=== PATIENT | male | born 1965 | race Caucasian/White ===

== ENCOUNTER 2020-01-10 07:04 | Emergency (ER) | payer MEDICAID ==
[~2020-01-10] VITALS: Ht 172.7 cm; Wt 73.4 kg
[2020-01-10 07:06] VITALS: BP 124/87
--- NOTE | 2020-01-10 07:53 | NUR ---
BOTTOM POLISHER: CALLED NO ANSWER
--- NOTE | 2020-01-10 08:03 | NUR ---
CLINICAL PROVIDER TRAINER: PT TO ROOM FROM [facility]
[2020-01-10] MEDS ORDERED: KETOROLAC 30 MG/1 ML ONE (08:22)
[2020-01-10] MEDS ORDERED: KETOROLAC 30 MG/1 ML IM ONE (08:30)
--- NOTE | 2020-01-10 08:49 | NUR ---
REPORT FROM JERRY HERNANDEZ.
== END 2020-01-10 09:23 | disposition home or self-care (01) ==
LOC: ED 08:24
DX: K08.89 Other specified disorders of teeth and supporting structures (principal)
CPT/HCPCS: 96372; 99283; J1885

== ENCOUNTER 2020-07-26 06:50 | Emergency (ER) | payer MEDICAID ==
[~2020-07-26] VITALS: Ht 172.7 cm; Wt 69.0 kg
[2020-07-26 07:05] VITALS: BP 114/68
== END 2020-07-26 07:30 | disposition home or self-care (01) ==
LOC: ED 07:20
DX: K08.89 Other specified disorders of teeth and supporting structures (principal)
CPT/HCPCS: 99283; 99285

== ENCOUNTER 2020-12-07 14:08 | Emergency (ER) | payer MEDICAID ==
[~2020-12-07] VITALS: Ht 172.7 cm; Wt 72.1 kg
[2020-12-07 14:23] VITALS: BP 121/77
--- NOTE | 2020-12-07 14:26 | NUR ---
[facility] DONE ON PT IN TRIAGE
--- NOTE | 2020-12-07 15:12 | NUR ---
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
[2020-12-07] MEDS ORDERED: PROPARACAINE OPHTH 0.5%, 15ML ONE (15:57)
[2020-12-07] MEDS ORDERED: FLUORESCEIN OPHTHALMIC 1 MG STRIP ONE (15:57)
[2020-12-07] MEDS ORDERED: IBUPROFEN 200 MG TABLET ONE (16:24)
[2020-12-07] MEDS ORDERED: IBUPROFEN 200 MG TABLET PO ONE (16:30)
--- NOTE | 2020-12-07 17:07 | NUR ---
PT REC'VD DISCHARGE INSTRUCTIONS AND EDUCATION. PT HAD NO FURHTER QUESTIONS. PT HAD NO FURTHER QUESTIONS. PT AMBULATED TO DC AREA, STEADY GAIT.
== END 2020-12-07 17:10 | disposition home or self-care (01) ==
LOC: ED 16:52
DX: H00.012 Hordeolum externum right lower eyelid (principal); F17.200 Nicotine dependence, unspecified, uncomplicated
CPT/HCPCS: 99283

== ENCOUNTER 2021-02-17 00:04 | Emergency (ER) | payer MEDICAID ==
--- NOTE | 2021-02-17 00:13 | NUR ---
PT WANTED TO LEAVE AFTER GETTING INTO TRIAGE AND SAID HE IS FINE NOW.
== END 2021-02-17 00:15 | disposition left against medical advice (07) ==
LOC: ED 00:06
DX: F41.9 Anxiety disorder, unspecified (principal); Z53.21 Procedure and treatment not carried out due to patient leaving prior to being seen by health care provider

== ENCOUNTER 2021-03-08 14:01 | Emergency (ER) | payer MEDICAID ==
[~2021-03-08] VITALS: Ht 172.7 cm; Wt 70.4 kg
[2021-03-08 14:13] VITALS: BP 110/75
--- NOTE | 2021-03-08 14:52 | NUR ---
DC EDUCATION PROVIDED, PT DEMONSTRATES UNDERSTANDING. PT AMBULATED STEADILY TO DC WITH RN
== END 2021-03-08 14:55 | disposition home or self-care (01) ==
LOC: ED 14:30
DX: K02.9 Dental caries, unspecified (principal); F17.210 Nicotine dependence, cigarettes, uncomplicated
CPT/HCPCS: 99283

== ENCOUNTER 2021-03-13 10:04 | Emergency (ER) | payer MEDICAID ==
[~2021-03-13] VITALS: Ht 172.7 cm; Wt 71.7 kg
[2021-03-13 10:35] LABS: BASOPHILS % (AUTO) 1 % (0-1); EOSINOPHILS % (AUTO) 2 % (1-7); LYMPHOCYTES % (AUTO) 18 % (22-44); MEAN CORPUSCULAR HEMOGLOBIN 31.2 pg (27.5-34.5); MEAN CORPUSCULAR HGB CONC 33.8 g/dL (33.2-36.2); MEAN PLATELET VOLUME 7.1 fL (7.4-10.4); MONOCYTES % (AUTO) 11 % (2-9); NEUTROPHILS % (AUTO) 68 % (42-75); PLATELET COUNT 297 x10^3/uL (130-400); RED BLOOD COUNT 4.66 x10^6/uL (4.38-5.82); RED CELL DISTRIBUTION WIDTH 13.9 % (9.4-14.8)
[2021-03-13 10:37] LABS: MD NO
[2021-03-13 10:45] LABS: ANION GAP 6 mmol/L (5-15); CALCIUM 8.8 mg/dL (8.5-10.1); CHLORIDE 100 mmol/L (98-107); CREATININE 0.84 mg/dL (0.7-1.3)
[2021-03-13 11:03] VITALS: BP 116/67
--- NOTE | 2021-03-13 11:13 | NUR ---
PT REC'VD DISCHARGE INSTRUCTIONS AND EDUCATION. PT PROVIDED HANDOUTS WITH DETOX AND COUNSELING RESOURCES. PT AMBULATED TO DC AREA, STEADY GAIT.
== END 2021-03-13 11:34 | disposition home or self-care (01) ==
LOC: ED 10:37
DX: F15.10 Other stimulant abuse, uncomplicated (principal); E86.0 Dehydration
CPT/HCPCS: 36415; 80048; 85025; 99283

== ENCOUNTER 2021-04-27 17:44 | Emergency (ER) | payer MEDICAID ==
[~2021-04-27] VITALS: Ht 172.7 cm; Wt 70.0 kg
--- NOTE | 2021-04-27 17:45 | NUR ---
PT BIB [facility], HERE FOR DETOX. PT REPORTED LAST USE OF ETOH AND METH WAS LAST NIGHT AT APPROXIMATELY MIDNIGHT. WENT TO [place], BUT HAD DIFFCULTY W/ PAPERWORK AND LEFT BUT COULDN'T WALK TOO FAR. PER [facility] HE HAD MUSCLE WEAKNESS, DIFFICULTY W/ VISION. HE ALSO REPORTED TYLENOL FOR PAIN LAST NIGHT. 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 PT CURRENTLY REPORTS MANZANARES, NO SWEATING OR TREMOR OBSERVED, DENIES HALLUCINATIONS. VSS.
[2021-04-27] MEDS ORDERED: SODIUM CHLORIDE 0.9% 1,000ML IVBOLUS ONE (18:00)
[2021-04-27] MEDS ORDERED: ONDANSETRON 2MG/ML, 2ML IVPush ONE (18:00)
[2021-04-27] MEDS ORDERED: ONDANSETRON 2MG/ML, 2ML ONE (18:16)
[2021-04-27 18:31] LABS: ALANINE AMINOTRANSFERASE 53 U/L (12-78); ALBUMIN 3.7 g/dL (3.4-5.0); ANION GAP 10 mmol/L (5-15); CALCIUM 8.6 mg/dL (8.5-10.1); CHLORIDE 109 mmol/L (98-107); CREATININE 0.83 mg/dL (0.7-1.3)
[2021-04-27 18:33] LABS: BASOPHILS % (AUTO) 1 % (0-1); EOSINOPHILS % (AUTO) 3 % (1-7); LYMPHOCYTES % (AUTO) 21 % (22-44); MEAN CORPUSCULAR HEMOGLOBIN 31.4 pg (27.5-34.5); MEAN CORPUSCULAR HGB CONC 34.1 g/dL (33.2-36.2); MEAN PLATELET VOLUME 7.5 fL (7.4-10.4); MONOCYTES % (AUTO) 12 % (2-9); NEUTROPHILS % (AUTO) 64 % (42-75); PLATELET COUNT 291 x10^3/uL (130-400); RED BLOOD COUNT 4.49 x10^6/uL (4.38-5.82)
[2021-04-27 18:34] LABS: ALKALINE PHOSPHATASE 101 U/L (45-117); BILIRUBIN,TOTAL 0.7 mg/dL (0.2-1.0); SALICYLATE LEVEL < 1.7 mg/dL (2.8-20.0)
--- NOTE | 2021-04-27 18:38 | NUR ---
PIV STARTED, IVF STARTED. PT PROVIDED DINNER TRAY AND WATER. ELSIS, GLENDA. CALL LIGHT W/IN REACH.
--- NOTE | 2021-04-27 18:55 | NUR ---
REPORT GIVEN TO DIMAS. PT IS RESTING, FOOD TRAY IN FRONT OF HIM.
--- NOTE | 2021-04-27 18:55 | NUR ---
report recieved from Ruby EDWARDS
[2021-04-27 19:03] VITALS: BP 101/51
--- NOTE | 2021-04-27 19:54 | NUR ---
pt asleep in bed, all needs in reach, call light in reach, NAD
--- NOTE | 2021-04-27 20:08 | NUR ---
pt a/ox4, pt walks steady with no support, NAD, pt discharged with bus pass
== END 2021-04-27 20:15 | disposition home or self-care (01) ==
LOC: ED 20:13
DX: F10.129 Alcohol abuse with intoxication, unspecified (principal); F15.129 Other stimulant abuse with intoxication, unspecified; R42 Dizziness and giddiness; R11.2 Nausea with vomiting, unspecified; F17.200 Nicotine dependence, unspecified, uncomplicated; Y90.0 Blood alcohol level of less than 20 mg/100 ml
CPT/HCPCS: 36415; 80053; 80299; 80320; 85025; 96361; 96374; 99283; J2405; J7030; 80329; G0480